=== PATIENT | male | born 1950 | race Caucasian/White ===

== ENCOUNTER 2025-04-19 07:05 | Day surgery (SDC) | payer MEDICARE, OTHER ==
[2025-04-19] MEDS ORDERED: Ondansetron 4 MG/2 ML SDV IVPUSH PRN (07:30)
[2025-04-19] MEDS: Povidone-Iodine 5% Sterile Ophth Soln 30 ML Bottle EYELF ONE ×2 (08:07→09:20)
[2025-04-19] MEDS: Moxifloxacin 0.5% Ophth Soln 3 ML Bottle EYELF ONE (08:10)
[2025-04-19] MEDS: Phenylephrine 10% Ophth Soln 5 ML Bot EYELF PRN (08:11)
[2025-04-19] MEDS: Timolol Maleate 0.5% Ophth Soln 5 ML Bottle EYELF ONE (08:11)
[2025-04-19] MEDS: Cataract Ophth Solution EYELF ONE (08:12)
[2025-04-19] MEDS: Apraclonidine 0.5% Ophth Soln 5 ML Bot EYELF ONE (09:20)
[2025-04-19] MEDS: Diclofenac Sodium 0.1% Ophth Soln 5 ML Bottle EYELF ONE (09:20)
[2025-04-19] MEDS: Dexamethasone/Neomycin/Polymyxin B Ophth Oint 3.5 GM Tube EYELF ONE (09:20)
[2025-04-19] MEDS ORDERED: Dexamethasone 4 MG/ML SDV ONE (09:49)
== END 2025-04-19 10:13 | disposition home or self-care (01) ==
LOC: DL.SDS 07:05
PROVIDERS: ATTEND Ophthalmology
DX: H25.812 Combined forms of age-related cataract, left eye (principal); I10 Essential (primary) hypertension; E78.5 Hyperlipidemia, unspecified; J44.9 Chronic obstructive pulmonary disease, unspecified; F32.A Depression, unspecified; E66.9 Obesity, unspecified; Z68.30 Body mass index [BMI] 30.0-30.9, adult; Z79.899 Other long term (current) drug therapy
CPT/HCPCS: A9270-GY; J2003; J3373; J3490; V2632